=== PATIENT | male | born 1970 | race Two or more races ===

== ENCOUNTER 2018-06-27 10:00 | Day surgery (SDC) | payer OTHER ==
[2018-06-27] MEDS ORDERED: NEXIUM 24HR20 MG PO (12:52)
== END 2018-06-27 13:55 | disposition home or self-care (01) ==
LOC: AMB-ENDOS 10:00
DX: K29.50 Unspecified chronic gastritis without bleeding (principal); K44.9 Diaphragmatic hernia without obstruction or gangrene; B96.81 Helicobacter pylori [H. pylori] as the cause of diseases classified elsewhere

== ENCOUNTER → 2019-11-12 11:11 | Outpatient (CLI) | payer OTHER ==
[~2019-11-12 11:11] MED LIST: NEXIUM 24HR20 MG PO
== END | disposition home or self-care (01) ==
LOC: LAB 11:11 → ADM 14:15 → AMB-ENDOS 11-19 14:15 → EDSTATUS 11-19 14:15 → LAB 01-01 10:30
PROVIDERS: ATTEND Surgery
DX: R10.32 Left lower quadrant pain (principal); Z03.818 Encounter for observation for suspected exposure to other biological agents ruled out